=== PATIENT | female | born 1945 | race Caucasian/White ===

== ENCOUNTER 2016-08-29 16:28 | Emergency (ER) | payer MEDICARE, OTHER ==
[~2016-08-29] VITALS: Ht 157.5 cm; Wt 70.0 kg
[2016-08-29 16:40] VITALS: BP 117/62; PULSE 72; TEMP 98.2; O2SAT 95
--- NOTE | 2016-08-29 17:15 | PD ---
HPI Chief Complaint: Back/ Neck Pain or Injury Time Seen by Provider: 17:09 Travel History International Travel<30 days: No Contact w/Intl Traveler<30days: No Traveled to known affect area: No History of Present Illness HPI 71 year old female with PMH of CKD presents to the ED via EMS for evaluation of 02/01 low back pain after fall from standing onto a tile floor. She states that her right leg "just went completely numb" and she fell to the floor, landing on her bottom. She reports hearing a crack and having sharp pain in her low back. She denies hitting her head or loss of consciousness. She denies headache, CP, SOB, abdominal pain, N/V. She denies numbness, tingling or weakness of the extremities on presentation. She has not been ambulatory since the event. The patient states that she had "4 glasses of vodka" today. PFSH Past Medical History Autoimmune Disease: No Blood Disorders: No Heart Rhythm Problems: No Cancer: No Diminished Hearing: No Psychiatric: No Tetanus Vaccination: < 5 Years Influenza Vaccination: No ?: Not Past Surgical History Pacemaker: No Social History Alcohol Use: Yes Tobacco Use: Yes Substance Use: No Allergies-Medications (Allergen,Severity, Reaction): Coded Allergies: Penicillin (Verified Allergy, Unknown, Rash, 08/27/03) Uncoded Allergies: BEXTRA (Allergy, Unknown, Rash, 08/27/03) Reported Meds & Prescriptions Reported Meds & Active Scripts Active Lortab (Hydrocodone-Acetaminophen) 7.5-325 Mg Tab 1 Tab PO Q6H PRN Review of Systems Except as stated in HPI: all other systems reviewed are Neg Physical Exam Narrative GENERAL: Well-nourished, well-developed white female, lying on a backboard, in no acute distress. SKIN: Focused skin assessment warm/dry. HEAD: Normocephalic. Atraumatic. EYES: No scleral icterus. No injection or drainage. PERRLA. EOMI. NECK: Supple, trachea midline. No JVD or lymphadenopathy. No midline TTP. No limitations to ROM. CARDIOVASCULAR: Regular rate and rhythm without murmurs, gallops, or rubs. 2+ DP and radial pulses bilaterally. RESPIRATORY: Breath sounds clear and equal bilaterally. No accessory muscle use. GASTROINTESTINAL: Abdomen soft, non-tender, nondistended. Active bowel sounds. MUSCULOSKELETAL: No cyanosis, or edema. Patient retains full, active ROM of BLE. Flexion of the hip elicits pain in the back. NEUROLOGICAL: Awake and alert. Cranial nerves II through XII intact. Motor and sensory grossly within normal limits. Five out of 5 muscle strength in all muscle groups. Normal speech. BACK: No obvious deformity. No CVA tenderness. TTP in the midline lumbar spine. Data Data Last Documented VS Vital Signs Date Time Temp Pulse Resp B/P Pulse Ox O2 Delivery O2 Flow Rate FiO2 08/29/16 19:04 80 16 127/81 99 08/29/16 16:[address] Lumb Spine W/O Contrast (08/29/16 16:52) Tramadol (Ultram) (08/29/16 18:30) MDM Medical Decision Making Medical Screen Exam Complete: Yes Emergency Medical Condition: Yes Differential Diagnosis vertebral fracture versus pelvic fracture versus hip fracture versus musculoskeletal pain versus other Narrative Course 71 year old female with PMH of CKD presents to the ED via EMS for evaluation of 10/10 low back pain after fall from standing onto a tile floor. She states that her right leg "just went completely numb" and she fell to the floor, landing on her bottom. She reports hearing a crack and having sharp pain in her low back. She denies hitting her head or loss of consciousness. She denies headache, CP, SOB, abdominal pain, N/V. She denies numbness, tingling or weakness of the extremities on presentation. She has not been ambulatory since the event. The patient states that she had "4 glasses of vodka" today. Vitals reviewed. Physical exam reveals a nontoxic-appearing white female, lying on a backboard in no acute distress. There is tenderness to palpation in midline lumbar spine. Patient retains full, active ROM of the bilateral lower extremities. Flexion of the right hips elicits pain in the back. No focal neuro deficits. CT lumbar spine reveals mild compression fracture of L2. Patient was administered by mouth tramadol. I discussed the results of the workup with the patient and her . Patient was able to demonstrate a normal gait. She was provided a copy of her CT results and a prescription for 7.5mg Lortab. She is instructed to return to gentle activity as tolerated, take medications as prescribed, follow up with Dr. Simeon tomorrow morning. She was cautioned not to mix alcohol with narcotic pain medications. She was cautioned not to drive while taking narcotic pain medications. The patient and her indicated understanding of the discharged instructions and are agreeable to the care plan. The patient is stable and discharged home. Diagnosis Primary Impression: Compression fracture of second lumbar vertebra Qualified Code: S32.020A - Compression fracture of second lumbar vertebra, closed, initial encounter Referrals: Amadou Simeon MD Patient Instructions: General Instructions, Vertebral Compression Fracture (ED) Additional Instructions: Rest, hydrate. Return to normal, gentle activities as tolerated. Take pain medication as prescribed. Do not drive while taking narcotic pain medications. Follow up with Dr. Simeon tomorrow as discussed. Return to the ED for any urgent or emergent medical condition. Med/Other Pt SpecificInfo: Prescription(s) given Scripts Hydrocodone-Acetaminophen (Lortab)7.5-325 Mg Tab1 Tab PO Q6H PRN (PAIN) #20 TAB Ref 0 Prov:Socorro Chapman MD 08/29/16 Disposition: 01 DISCHARGE HOME Condition: Stable [place] August 29, 2016 17:15
--- NOTE | 2016-08-29 18:04 | RADRPT ---
EXAM DATE/TIME: 08/29/2016 17:09 [facility] COMPARISON: No previous studies available for comparison. INDICATIONS : Back pain after fall. RADIATION DOSE: 35.86 CTDIvol (mGy) MEDICAL HISTORY : None SURGICAL HISTORY : None. ENCOUNTER: Initial ACUITY: 1 day PAIN SCALE: 5/10 LOCATION: Bilateral Lumbar. TECHNIQUE: Volumetric scanning of the lumbar spine was performed. Multiplanar reconstructions in the sagittal, coronal and oblique axial planes were performed. Using automated exposure control and adjustment of the mA and/or kV according to patient size, radiation dose was kept as low as reasonably achievable t o obtain optimal diagnostic quality images. FINDINGS: There is a minimal compression fracture through the anterior aspect of L2. There is no retropulsion. No significant canal stenosis. There is moderate degenerative changes in the lumbar scoliosis. No other compression fractures are identified. There is deformity of the left side of the sacrum which has the appearance of a remote fracture with nonunion or possibly a congenital defect. There is a broad-based disc bulge at L4-5-S1 with mild lateral recess and foraminal encroachment bila terally. CONCLUSION: 1. Mild compression fracture of L2 anteriorly. No retropulsion no significant canal stenosis. 2. Deformity of the left sacral ala possibly from a remote fracture with nonunion or a congenital def ect. Moo Narayan MD on August 29, 2016 at 17:55 Board Certified Radiologist. This report was verified electronically.
[2016-08-29] MEDS ORDERED: HYDR-3534 PO (18:16)
[2016-08-29] MEDS ORDERED: traMADol HCL 50 MG TAB PO ONE (18:30)
[2016-08-29 19:04] VITALS: BP 127/81
== END 2016-08-29 19:05 | disposition home or self-care (01) ==
LOC: NEPC 16:28
DX: S32.020A Wedge compression fracture of second lumbar vertebra, initial encounter for closed fracture (principal); W19.XXXA Unspecified fall, initial encounter
CPT/HCPCS: 72131